=== PATIENT | female | born 2000 | race Hispanic/Latino ===

== ENCOUNTER 2021-09-23 10:43 | Emergency (ER) | payer OTHER, MEDICAID, SELFPAY ==
[2021-09-23 11:05] VITALS: BP 133/77; PULSE 69; RESP 20; TEMP 36.1; O2SAT 99; BMI 21.4
--- NOTE | 2021-09-23 11:14 | DI.CT.S_ITS ---
PROCEDURE: CT CERVICAL SPINE WO CON INDICATIONS: fall, post head and neck pain TECHNIQUE: Noncontrast 3 mm thick sections acquired from the skull base to the T4 level. Sagittal and coronal reformats were then constructed. For radiation dose reduction, the following was used: automated exposure control, adjustment of mA and/or kV according to patient size. COMPARISON: [facility], CR, XR CERVICAL SPINE 2 OR 3 VIEWS, 06/10/2021, 10:57. [facility], CT, CT HEAD/BRAIN WO CON, 09/23/2021, 11:17. FINDINGS: Image quality: Excellent. Bones: No fractures or dislocations. Visualized superior ribs are intact. Soft tissues: Prevertebral soft tissues are normal in thickness. No paravertebral hematomas. No apical pneumothoraces. IMPRESSION: Negative for fracture. Dictated by: Amado Suarez M.D. on 09/23/2021 at 10:39 Approved by: Amado Suarez M.D. on 09/23/2021 at 10:40
--- NOTE | 2021-09-23 11:17 | DI.CT.S_ITS ---
PROCEDURE: CT HEAD/BRAIN WO CON INDICATIONS: fall, post head and neck pain TECHNIQUE: Noncontrast 4.5 mm thick angled axial sections acquired from the foramen magnum to the vertex, with coronal and sagittal reformats. For radiation dose reduction, the following was used: automated exposure control, adjustment of mA and/or kV according to patient size. COMPARISON: [facility], CT, CT CERVICAL SPINE WO CON, 09/23/2021, 11:17. FINDINGS: Image quality: Mild streak artifact can be seen through the skull base. CSF spaces: Basal cisterns are patent. No extra-axial fluid collections. Ventricles are normal in size and shape. Brain: No midline shift. No intracranial masses or hemorrhage. Jain-white matter interface is normal. Skull and face: Calvarium and visualized facial bones are intact, without suspicious lesions. Sinuses: Visualized sinuses and mastoids are clear. IMPRESSION: No acute intracranial process is seen. No acute intracranial hemorrhage is seen. Dictated by: Amado Suarez M.D. on 09/23/2021 at 10:41 Approved by: Amado Suarez M.D. on 09/23/2021 at 10:41
--- NOTE | 2021-09-23 12:18 | ED.FALL ---
HPI - Fall <Fernando Gtz PA-C - Last Filed: 09/23/21 12:26> General Chief Complaint: Fall Stated Complaint: fell, neck pain, headache, advised to get CT Time Seen by Provider: 09/23/21 11:55 Source: patient Mode of arrival: Ambulatory History of Present Illness HPI Narrative: 21-year-old female with no reported past medical history presents to the ED status post a head injury sustained 2 days ago. Patient reports that she fell of a trailer when she misjudged a 3 ft stepoff. Patient had impact to the left back side of her head. Patient denies loss of consciousness. Patient does not take any blood thinners. Patient endorses paraspinal neck pain and a headache since the fall. Patient has had 2 episodes of vomiting. Patient denies fever, chills, chest pain, shortness of breath, cough, rhinorrhea, otorrhea, visual disturbances, abdominal pain, back pain, dysuria, lightheadedness, dizziness, syncope. Related Data Home Medications Medication Instructions Recorded Confirmed cholecalciferol (vitamin D3) 50 #0 07/29/17 mcg (2,000 unit) capsule (Vitamin D3) ferrous gluconate 236 mg (27 mg #0 07/29/17 iron) tablet Allergies Allergy/AdvReac Type Severity Reaction Status Date / Time No Known Drug Allergies Allergy Verified 09/23/21 11:10 Review of Systems <Fernando Gtz PA-C - Last Filed: 09/23/21 12:26> Review of Systems ROS Unobtainable: All systems reviewed & are unremarkable except as noted in HPI and below Constitutional Constitutional: Denies chills, Denies fatigue, Denies fever(s), Denies frequent falls, Reports headache(s), Denies lethargy and Denies weakness Eyes Eyes: Denies change in vision, Denies eye discharge, Denies irritation and Denies loss of vision ENT Ears, Nose, Mouth, and Throat: Denies change in voice, Denies dizziness, Reports headache(s), Reports neck pain, Denies sore throat and Denies throat swelling Cardiovascular Cardiovascular: Denies chest pain, Denies irregular heart rhythm, Denies lightheadedness, Denies palpitations, Denies dyspnea, Denies dyspnea on exertion and Denies orthopnea Respiratory Respiratory: Denies cough, Denies dyspnea, Denies dyspnea on exertion and Denies wheezing Gastrointestinal Gastrointestinal: Denies abdominal pain, Denies change in bowel habits, Denies diarrhea, Reports nausea and Reports vomiting Genitourinary Genitourinary: Denies hematuria, Denies flank pain, Denies urinary incontinence and Denies urinary urgency Musculoskeletal Musculoskeletal: Denies back pain, Denies muscle weakness, Reports neck pain, Denies numbness and Denies tingling Integumentary/Breasts Skin/Breast: Denies pruritus, Denies erythema, Denies rash and Denies wounds Neurologic Neurologic: Denies behavioral changes, Denies confusion, Denies dizziness, Denies frequent falls, Reports headache(s), Denies loss of vision, Denies numbness, Denies tingling and Denies weakness Psychiatric Psychiatric: Denies anxiety, Denies behavioral changes, Denies confusion, Denies depression, Denies homicidal ideation and Denies suicidal ideation Endocrine Endocrine: Denies fatigue, Denies flushing and Denies palpitations Hematologic/Lymphatic Hematologic/Lymphatic: Denies easy bruising Allergic/Immunologic Allergic/Immunologic: Denies urticaria, Denies throat swelling and Denies wheezing Patient History <Fernando Gtz PA-C - Last Filed: 09/23/21 12:26> Social History Smoking Status: Never smoker Smoking Status: Never smoker alcohol intake frequency: 0-2 drinks per day Substance Use Type: marijuana Exam <Fernando Gtz PA-C - Last Filed: 09/23/21 12:26> Initial Vital Signs Initial Vital Signs: Vital Signs Temperature 96.9 F L 09/23/21 11:05 Pulse Rate 69 09/23/21 11:05 Respiratory Rate 20 09/23/21 11:05 Blood Pressure 133/77 09/23/21 11:05 Pulse Oximetry 99 09/23/21 11:05 Const General: cooperative, healthy appearing and comfortable [facility] Head: normal to inspection Ears: hearing grossly normal bilaterally Nose: external nose normal Face and sinus: normal facial exam Mouth: oral mucosae normal Teeth and gingiva: dentition normal Throat: posterior oropharynx normal Eyes General: appearance normal, both eyes and all related structures Neck Neck: normal visual inspection, full ROM and no meningeal signs Chest Chest: normal inspection of the chest Resp Effort & Inspection: normal respiratory effort Auscultation: clear to auscultation bilaterally Cardio Rate: regular rate Rhythm: regular rhythm GI Other: Abdomen is soft, nontender, non distended. General: No CVA tenderness Back/Spine/Pelvis Back: normal to inspection Other: Negative midline tenderness. Some paraspinal tenderness of the neck. Full range of motion. Strength and sensation intact. Neurovascularly intact. Skin General: no rashes or lesions noted Neuro General: patient alert, patient awake and patient oriented x3 Psych Appearance: grossly normal <Zoran Moore DO - Last Filed: 09/23/21 12:31> Initial Vital Signs Initial Vital Signs: Vital Signs Temperature 96.9 F L 09/23/21 11:05 Pulse Rate 69 09/23/21 11:05 Respiratory Rate 20 09/23/21 11:05 Blood Pressure 133/77 09/23/21 11:05 Pulse Oximetry 99 09/23/21 11:05 Course <Fernando Gtz PA-C - Last Filed: 09/23/21 12:26> Orders Ordered: ED Orders 09/23/21 11:14 CT cervical spine wo con Stat 09/23/21 11:17 CT head/brain wo con Stat Vital Signs Vital signs: Vital Signs - 8 hr 09/23/21 11:05 Temperature 96.9 F L Pulse Rate 69 Respiratory Rate 20 Blood Pressure 133/77 Pulse Oximetry 99 <Zoran Moore DO - Last Filed: 09/23/21 12:31> Orders Ordered: ED Orders 09/23/21 11:14 CT cervical spine wo con Stat 09/23/21 11:17 CT head/brain wo con Stat Vital Signs Vital signs: Vital Signs - 8 hr 09/23/21 11:05 Temperature 96.9 F L Pulse Rate 69 Respiratory Rate 20 Blood Pressure 133/77 Pulse Oximetry 99 MDM - Fall <NIKKY Lima Last Filed: 09/23/21 12:26> Imaging Data CT scan - head: Radiologist's Impression: PROCEDURE:? CT HEAD/BRAIN WO CON ? INDICATIONS:? fall, post head and neck pain ? TECHNIQUE:? Noncontrast 4.5 mm thick angled axial sections acquired from the foramen magnum to the vertex, with coronal and sagittal reformats.? For radiation dose reduction, the following was used:? automated exposure control, adjustment of mA and/or kV according to patient size.? ? COMPARISON:? [facility], CT, CT CERVICAL SPINE WO CON, 09/23/2021, 11:17. ? FINDINGS:? Image quality:? Mild streak artifact can be seen through the skull base. ? CSF spaces:? Basal cisterns are patent.? No extra-axial fluid collections.? Ventricles are normal in size and shape.? ? Brain:? No midline shift.? No intracranial masses or hemorrhage.? Jian-white matter interface is normal.? ? Skull and face:? Calvarium and visualized facial bones are intact, without suspicious lesions.? ? Sinuses:? Visualized sinuses and mastoids are clear.? IMPRESSION:? ? No acute intracranial process is seen.? ? No acute intracranial hemorrhage is seen.? ? ? Dictated by: Amado Suarez M.D. on 09/23/2021 at 10:41 ? ? Approved by: Amado Suarez M.D. on 09/23/2021 at 10:41 ? CT - cervical spine: Radiologist's Impression: PROCEDURE:? CT CERVICAL SPINE WO CON ? INDICATIONS:? fall, post head and neck pain ? TECHNIQUE:? Noncontrast 3 mm thick sections acquired from the skull base to the T4 level.? Sagittal and coronal reformats were then constructed.? For radiation dose reduction, the following was used:? automated exposure control, adjustment of mA and/or kV according to patient size.? ? COMPARISON:? [facility], CR, XR CERVICAL SPINE 2 OR 3 VIEWS, 06/10/2021, 10:57.? [facility], CT, CT HEAD/BRAIN WO CON, 09/23/2021, 11:17. ? FINDINGS:? Image quality:? Excellent.? ? Bones:? No fractures or dislocations.? Visualized superior ribs are intact.? ? Soft tissues:? Prevertebral soft tissues are normal in thickness.? No paravertebral hematomas.? No apical pneumothoraces.? ? ? IMPRESSION:? Negative for fracture. ? ? ? Dictated by: Amado Suarez M.D. on 09/23/2021 at 10:39 ? ? Approved by: Amado Suarez M.D. on 09/23/2021 at 10:40 ? MDM Narrative Medical decision making narrative: 21-year-old female with no reported past medical history presents to the ED status post a head injury sustained 2 days ago. Concern for intracranial hemorrhage versus fracture/dislocation versus concussion. Will obtain CT head, CT C-spine, reassess. CT head and CT C-spine negative for acute findings. Patient counseled on concussions and post concussive syndrome. Discharged patient home with ED return precautions and PCP follow-up. Patient verbalized understanding. Discharge Plan Departure Patient Disposition: Home Clinical Impression: Concussion Instructions: DI for Concussion, DI for Postconcussion Syndrome Activity Restrictions/Additional Instructions: You were evaluated in the ED today for a head injury. Your CT head and CT cervical spine did not show any evidence of bleeding or fracture/dislocation. Your symptoms are likely due to a concussion. We advise both physical and cognitive rest until your symptoms resolve. Symptoms could include nausea, vomiting, headaches, fatigue, irritability, depression. Symptoms can last a variable length of time ranging from a few days to weeks to months. You may take Tylenol or ibuprofen for symptom relief. Please follow-up with your primary care provider for follow-up on post concussive syndrome. Return to the ED if you have worsening symptoms, numbness, tingling, weakness, repeated vomiting. Prescriptions: No Action cholecalciferol (vitamin D3) [Vitamin D3] 2,000 UNIT capsule Qty: 0 0RF ferrous gluconate 236 MG tablet Qty: 0 0RF <Zoran Moore, DO - Last Filed: 09/23/21 12:31> [facility] Dr Moore Co-Sign Statement: I was available for consultation during this patient's emergency department visit. This chart is signed by myself for administrative purposes only. I did not have direct contact with this patient during this visit. They were seen independently by the APC.
== END 2021-09-23 12:38 | disposition home or self-care (01) ==
PROVIDERS: Emergency Provider Student in an Organized Health Care Education/Training Program
DX: S06.0X0A Concussion without loss of consciousness, initial encounter (principal); M54.2 Cervicalgia; W17.89XA Other fall from one level to another, initial encounter
CPT/HCPCS: 70450; 72125; 99283; 99284

== ENCOUNTER → 2022-06-10 14:17 | Outpatient (CLI) | payer OTHER, MEDICAID, SELFPAY | PROVIDERS: Visit Provider Nurse Practitioner Family | DX: R30.0 Dysuria (principal) | CPT/HCPCS: 81002; 87086; 87147 ==

== ENCOUNTER 2023-07-17 15:22 | Outpatient (CLI) | payer OTHER, MEDICAID, SELFPAY | END 2023-07-17 16:22 | disposition home or self-care (01) | LOC: OB 07-22 15:59 | PROVIDERS: Referring Provider Obstetrics & Gynecology; Visit Provider Obstetrics & Gynecology | DX: O47.1 False labor at or after 37 completed weeks of gestation (principal); Z3A.38 38 weeks gestation of pregnancy | CPT/HCPCS: 59025; G0378; G0379 ==

== ENCOUNTER 2024-08-18 13:41 | Observation (INO) | payer OTHER, SELFPAY ==
--- NOTE | 2024-08-18 14:07 | PM.OBTRLD ---
Visit Information Visit Information Date of evaluation: 08/18/24 On-call OB Provider: Mayra Leija Reason for Evaluation: Yes pre-term labor Comments/Additional reasons for admission: 24-year-old presenting 33 weeks 0 days for 2 days cramping and 1 day of light bleeding. Yesterday evening she noticed some cramping. She was going to sleep and was able to fall asleep so she did not feel too concerned. When she woke up this morning, cramping was improved but still present. As the day went she noticed worsening and cramping and this evening noticed small flecks of bright red blood which prompted her to in for evaluation. She is receiving her care as scheduled regional. She does not recall having a anatomy ultrasound, thinks she just had a dating ultrasound. has been uncomplicated. She does note that she has a [id number] child, which would make this a short interval . On arrival to triage, labs were obtained and she was encouraged to continue with p.o. fluid hydration. This does not seem to have improved her symptoms significantly. Is still noting cramping and discharge. Vital Signs Vital Signs: BP- 129/72 HR- 93 Temp: 36.5C PFSH Social History Smoking Status: Current every day smoker Review of Systems Review of Systems Narrative: - LOF - vaginal itching + vaginal discharge + movement - OROPEZA + abd cramping - pain wtih urination Exam Narrative Exam Narrative: GEn: well appearing, NAD, non-toxic Eyes: EOMI Pulm: Breathing comfortably on room air CV: Warm and well-perfused : Normal external genitalia, patient noting lots of pain and discomfort with insertion of speculum starting at introitus present throughout insertion. Cervical os visualized, cervix visually closed. No blood at the os. No dark brown or bright red blood within vaginal vault. Copious white discharge present. MSK: no edema Evaluation Evaluation Baseline heart rate: 130 Variability: Moderate (11-25) monitor accelerations: Present Monitor Decelerations: Absent Contraction Frequency (minutes): 0 Category of Tracing: Reactive Status: Category l Cervical dilation (cm): 0 Comments: Wet mount performed: clue cells diffusely present across the slide No yeast or trich Diagnosis, Plan/Disposition Plan/Disposition Plan: 24-year-old presenting with cramping and spotting at 33 weeks 0 days. Wet mount suggestive of bacterial vaginosis. Discussed pathophysiology of this and recommend treatment with metronidazole 500 b.i.d. x7 days. Reviewed risk of yeast infection to follow, she will follow-up with her primary OB in the next week and if signs of yeast infection occur, she will follow up sooner. Reviewed risks of labor with infection. Patient understanding and amenable to treatment. FHT reactive throughout. Uterine irritability note but no contractions. UA negative. OB Disposition: home
--- NOTE | 2024-08-18 14:08 | DI.US.S_ITS ---
PROCEDURE: US OB LIMITED INDICATIONS: vaginal bleeding, cramping OUTSIDE/PRIOR DATING DATA: Last menstrual period (LMP): 11/28/2023. LMP-based estimated date of delivery (FRANCESCA): 09/03/2024. First dating scan (date and location): 02/11/2024. Estimated date of delivery (FRANCESCA) from first dating scan: 10/05/2024. TECHNIQUE: Real-time scanning was performed of the fetus, with image documentation. Endovaginal scanning: No COMPARISON: None. FINDINGS: A single living intrauterine gestation is present. Presentation: Vertex. Placenta: Placental position is anterior, without previa. Normal >2 cm. Low lying is <2 cm to the edge. Previa covers the internal os. Amniotic fluid index: 12.5 cm, normal range is 5-24 cm. Single deepest vertical pocket is 4.1 cm. heart rate: 144 beats per minute. Maternal cervical canal: 3.3 cm long. Normal lower limit is 2.5 cm. Estimated gestational age: 33 weeks and 1 day IMPRESSION: Single live intrauterine gestation with an estimated gestational age of 33 weeks and 1 day. Dictated by: Vijay Sanchez M.D. on 08/18/2024 at 16:00 Approved by: Vijay Sanchez M.D. on 08/18/2024 at 16:04
[2024-08-18 14:40] LABS: Appearance Urine UA CLEAR; Bilirubin Urine UA NEGATIVE (NEGATIVE); Color Urine UA YELLOW; Glucose Urine UA NEGATIVE (Negative); Ketones Urine UA NEGATIVE (NEGATIVE); Leukocyte Esterase Urine UA NEGATIVE (NEGATIVE); Nitrite Urine UA NEGATIVE (Negative); Occult Blood Urine UA NEGATIVE (Negative); Protein Urine UA NEGATIVE (Negative); Urobilinogen Urine UA 0.2 E.U./dL (0.2)
[2024-08-18 14:42] LABS: pH Urine UA 6.5 (4.5-8.0)
[2024-08-18 14:47] LABS: Bacteria Urine Occasional (0-1); Culture Indicated Urine Cult Not Indicated; RBC Urine 1-5/HPF (0-5/HPF); Squamous Epithelial Cell Urine 1-5 /HPF (0-5/HPF); Urine Volume 10mL (spun); WBC Urine 1-5/HPF (0-5/HPF)
== END 2024-08-18 17:26 | disposition home or self-care (01) ==
PROVIDERS: Admitting Provider Family Medicine; Referring Provider Family Medicine; Visit Provider Family Medicine
DX: O26.853 Spotting complicating pregnancy, third trimester (principal); O26.893 Other specified pregnancy related conditions, third trimester; R10.9 Unspecified abdominal pain; Z3A.33 33 weeks gestation of pregnancy
CPT/HCPCS: 59025; 59050; 76815; 81001; 87210; G0378; G0379

== ENCOUNTER → 2024-08-25 16:12 | Outpatient (CLI) | payer OTHER, SELFPAY ==
[2024-08-25 17:04] LABS: Alanine Aminotransferase 14 IU/L (<35); Albumin 3.4 g/dL (3.5-5.0); Albumin Globulin Ratio 1.3 (1.0-2.8); Alkaline Phosphatase 156 U/L (38-126); Aspartate Aminotransferase 21 IU/L (14-36); BUN Creatinine Ratio 14.5 (6-22); Bilirubin Total 0.4 mg/dL (0.2-1.3); Blood Urea Nitrogen 11 mg/dL (7-17); Carbon Dioxide 23 mmol/L (22-32); Chloride 106 mmol/L (98-107); Estimated Glomerular Filt Rate > 60 mL/min (>60); Globulin 2.7 g/dL (1.7-4.1); Glucose 80 mg/dL (70-100); HEMOLYSIS < 15 (0-50); Potassium 4.4 mmol/L (3.4-5.1); Sodium 132 mmol/L (137-145); Total Protein 6.1 g/dL (6.3-8.2)
[2024-08-27 12:36] LABS: Bile Acids 8.6 umol/L (0.0-10.0)
== END ==
PROVIDERS: Referring Provider Obstetrics & Gynecology; Visit Provider Obstetrics & Gynecology
DX: O99.713 Diseases of the skin and subcutaneous tissue complicating pregnancy, third trimester (principal); L29.9 Pruritus, unspecified
CPT/HCPCS: 36415; 80053; 82239

== ENCOUNTER 2024-08-25 17:59 | Observation (INO) | payer OTHER, SELFPAY ==
--- NOTE | 2024-08-25 18:40 | PM.OBTRLD ---
Visit Information Visit Information Date of evaluation: 08/25/24 Primary OB Provider: Debbie Morales On-call OB Provider: Debbie Morales Reason for Evaluation: Yes non-stress test Comments/Additional reasons for admission: new pruritus of hands/feet, completed labs per screedman/laborer instructions for bile acids with CMP, then called back with c/o decreased FM x24h and amenable to physician request to return to facility for NST with bedside [facility] Medical History (Updated 08/22/24 @ 11:11 by Mickie Goldberg RN) Anemia Surgical History (Updated 08/22/24 @ 11:11 by Mickie Goldberg, RN) History of tonsillectomy History of foot surgery Family History (Updated 08/22/24 @ 11:16 by Mickie Goldberg RN) Mother Hypertension Hyperlipidemia Father Hyperlipidemia Sister Asthma Grandmother Dementia Migraine Grandfather Thyroid cancer Lung cancer Bone cancer Asthma Social History marital status: unmarried,living together number of children: 1 household members: significant other, family (s/o's brother) and children lives independently: Yes caregiver/support person: Yes housing: house pets and animals: No education level: high school 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) current occupational exposures/hazards: No special camilo needs: No travel history: recent (domestic only) seatbelt use: always water heater temp set < 120 deg: Yes working smoke detector in home: Yes fire extinguisher in home: Yes carbon monox detector in home: Yes firearms in home: No do you feel safe at home: Yes Smoking Status: Former smoker (quit w/ 1st ) second hand exposure: No alcohol intake: former (very occasionally when not ) substance use type: marijuana (not when /) during the past year weight has: other (less than 6 months between pregnancies) well-balanced diet: daily or most days daily servings fruits/ve-4 caffeine: Yes (minimal) Type(s) of exercise: walking Review of Systems Review of Systems ROS: Yes All systems reviewed with the patient and are negative except as otherwise documented Exam Vital Signs (past 8 hours): maternal VSS/afebrile, reviewed in OBIX Const General: cooperative and healthy appearing Nutritional Appearance: average body habitus Orientation: alert, awake and oriented x3 Limitations: mental status not altered Resp Effort & Inspection: normal respiratory effort and able to speak in complete sentences Cardio Pulses: normal peripheral pulses GI Inspection: normal to inspection Other: gravid, rolando cephalic no rash, non-tender Other: deferred Skin General: no rashes or lesions noted (dry skin noted between fingers), No excoriation and No excoriations Neuro General: patient alert, patient awake and patient oriented x3 Extrem General: normal to inspection Psych Mental Status: mental status grossly normal Judgment: judgment good Evaluation Evaluation Baseline heart rate: 140 Variability: Moderate (11-25) monitor accelerations: Present Monitor Decelerations: Absent Category of Tracing: Reactive Status: Category l Comments: bedside US: SDP >5cm, cephalic presentation, noted calcified appearance of placenta without lacunar lakes Diagnosis, Plan/Disposition Plan/Disposition Plan: bile acids, CMP drawn today, pending and will follow strict FM precautions reviewed, pt amenable to recommendation for twice weekly NST has new OB/xfr appointment in office 08/28/24 with planned repeat NST to follow pt verbalized understanding and in agreement with plan of care OB Disposition: home
== END 2024-08-25 18:45 | disposition home or self-care (01) ==
LOC: LABOR 18:01
PROVIDERS: Admitting Provider Obstetrics & Gynecology; Referring Provider Obstetrics & Gynecology; Visit Provider Obstetrics & Gynecology
DX: O26.893 Other specified pregnancy related conditions, third trimester (principal); O99.713 Diseases of the skin and subcutaneous tissue complicating pregnancy, third trimester; L29.9 Pruritus, unspecified; Z3A.34 34 weeks gestation of pregnancy
CPT/HCPCS: 36415; 59025; 76815; 80053; 82239; G0378; G0379

== ENCOUNTER 2024-08-28 14:07 | Observation (INO) | payer OTHER, SELFPAY | END 2024-08-28 15:02 | disposition home or self-care (01) | PROVIDERS: Admitting Provider Student in an Organized Health Care Education/Training Program; PCP Family Medicine; Referring Provider Student in an Organized Health Care Education/Training Program; Visit Provider Student in an Organized Health Care Education/Training Program | DX: O26.643 Intrahepatic cholestasis of pregnancy, third trimester (principal); O36.8130 Decreased fetal movements, third trimester, not applicable or unspecified; Z3A.34 34 weeks gestation of pregnancy | CPT/HCPCS: 59025; G0378; G0379 ==

== ENCOUNTER → 2024-09-06 15:14 | Outpatient (CLI) | payer OTHER, SELFPAY ==
--- NOTE | 2024-09-06 15:16 | DI.US.S_ITS ---
PROCEDURE: US OB LIMITED INDICATIONS: check growth OUTSIDE/PRIOR DATING DATA: Working FRANCESCA 10/05/2024 provided by the patient. This is consistent with prior outside FRANCESCA based on 1st dating scan on 02/11/2024 TECHNIQUE: Real-time scanning was performed of the fetus, with image documentation and biometric measurements. COMPARISON: [facility], OB LIMITED, 08/18/2024, 14:47. FINDINGS: General: A single living intrauterine gestation is present. Presentation: Vertex. Placenta: Placental position is anterior , without previa. Amniotic fluid index: 13.9 cm, normal range is 5-24 cm. Single deepest vertical pocket is 7.2 cm. heart rate: 125 beats per minute. Maternal cervical canal: Not well seen biometrics: Biparietal diameter: 9 cm, 36 weeks and 4 days Head circumference: 32.2 cm, 36 weeks and 3 days Abdominal circumference: 32.7 cm, 36 weeks and 4 days Femur length: 6.5 cm, 33 weeks and 4 days Clinically estimated gestational age: 35 weeks and 6 days Composite gestational age from present scan: 35 weeks and 6 days Estimated weight and percentile: 2771 g, 49% Other: Not applicable. IMPRESSION: Living intrauterine gestation at 35 weeks and 4 days. EFW is at the 49th percentile. Normal ARI. Vertex presentation. Dictated by: Cipriano Madison M.D. on 09/06/2024 at 17:29 Approved by: Cipriano Madison M.D. on 09/06/2024 at 17:31
== END ==
LOC: US 15:15
PROVIDERS: PCP Family Medicine; Referring Provider Obstetrics & Gynecology; Visit Provider Obstetrics & Gynecology
DX: Z87.898 Personal history of other specified conditions (principal); Z3A.35 35 weeks gestation of pregnancy
CPT/HCPCS: 76815

== ENCOUNTER → 2024-09-12 08:32 | Outpatient (CLI) | payer OTHER, SELFPAY ==
[2024-09-13 12:56] LABS: Strep Grp B PCR NEG for Grp B Strep
== END ==
PROVIDERS: PCP Family Medicine; Visit Provider Obstetrics & Gynecology
DX: Z34.83 Encounter for supervision of other normal pregnancy, third trimester (principal); Z3A.36 36 weeks gestation of pregnancy
CPT/HCPCS: 87653

== ENCOUNTER 2024-09-13 16:10 | Outpatient (CLI) | payer OTHER, SELFPAY ==
--- NOTE | 2024-09-13 16:28 | P.TNLD_ITS ---
Visit Information Visit Information Date of evaluation: 09/13/24 Primary OB Provider: Debbie Morales On-call OB Provider: Mayra Leija Reason for Evaluation: Yes rule out labor Comments/Additional reasons for admission: 24 yo presenting at 36w6d for for pelvic pressure and cramping. She feels lie the cramping is in her bowels not in her bladder or uterus. she has also had lightening crotch. SHe is not having any fevers, urinary urgency, urinary frequency. Cramping is not regular. No LOF or VB. + movement PFSH Medical History (Updated 08/22/24 @ 11:11 by Mickie Goldberg RN) Anemia Surgical History (Updated 08/22/24 @ 11:11 by Mickie Goldberg RN) History of tonsillectomy History of foot surgery Family History (Updated 08/22/24 @ 11:16 by Mickie Goldberg RN) Mother Hypertension Hyperlipidemia Father Hyperlipidemia Sister Asthma Grandmother Dementia Migraine Grandfather Thyroid cancer Lung cancer Bone cancer Asthma Social History marital status: unmarried,living together number of children: 1 household members: significant other, family (s/o's brother) and children lives independently: Yes caregiver/support person: Yes housing: house pets and animals: No education level: high school 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) current occupational exposures/hazards: No special camilo needs: No travel history: recent (domestic only) seatbelt use: always water heater temp set < 120 deg: Yes working smoke detector in home: Yes fire extinguisher in home: Yes carbon monox detector in home: Yes firearms in home: No do you feel safe at home: Yes Smoking Status: Former smoker (quit w/ 1st ) second hand exposure: No alcohol intake: former (very occasionally when not ) substance use type: marijuana (not when /) during the past year weight has: other (less than 6 months between pregnancies) well-balanced diet: daily or most days daily servings fruits/ve-4 caffeine: Yes (minimal) Type(s) of exercise: walking Exam Narrative Exam Narrative: GEn; well appearing, NAD Eyes: EOMI Abd: gravid Pulm: breathing comfortably on RA SVE:closed/thick/high Evaluation Evaluation Baseline heart rate: 125 Variability: Moderate (11-25) monitor accelerations: Present Monitor Decelerations: Absent Contraction Frequency (minutes): 0 Status: Category l Cervical dilation (cm): 0 Cervical effacement (%): 0 station: -3 Diagnosis, Plan/Disposition Plan/Disposition Plan: 24 yo presenting at 36w6d for pelvic cramping. UA showing some bacteria, will send for culture but on further discussion pt not noting urinary sx and does not feel that her sx are related to UTI. Pelvic cramping has calmed down while being evaluated. TOCO showing no contractions. Will d/c home wtih return precatuions. OB Disposition: home
[2024-09-13 16:32] LABS: Appearance Urine UA CLEAR; Bilirubin Urine UA NEGATIVE (NEGATIVE); Color Urine UA YELLOW; Glucose Urine UA NEGATIVE (Negative); Ketones Urine UA TRACE (NEGATIVE); Leukocyte Esterase Urine UA NEGATIVE (NEGATIVE); Nitrite Urine UA NEGATIVE (Negative); Occult Blood Urine UA NEGATIVE (Negative); Protein Urine UA NEGATIVE (Negative); Specific Gravity Urine UA 1.025 (1.000-1.035); Urobilinogen Urine UA 0.2 E.U./dL (0.2)
[2024-09-13 16:33] LABS: pH Urine UA 6.5 (4.5-8.0)
[2024-09-13 16:39] LABS: RBC Urine 0-1/HPF (0-5/HPF); Urine Volume 10mL (spun)
[2024-09-13 16:40] LABS: Bacteria Urine Moderate (10-30); Culture Indicated Urine Cult Not Indicated; Mucus Urine 2+ (Negative); Squamous Epithelial Cell Urine 0-1 /HPF (0-5/HPF); WBC Urine 0-1/HPF (0-5/HPF)
== END 2024-09-13 18:10 | disposition home or self-care (01) ==
LOC: OB 09-14 14:18
PROVIDERS: Family Medicine; PCP Family Medicine; Referring Provider Obstetrics & Gynecology; Visit Provider Obstetrics & Gynecology
DX: O26.893 Other specified pregnancy related conditions, third trimester (principal); R10.2 Pelvic and perineal pain; Z3A.36 36 weeks gestation of pregnancy
CPT/HCPCS: 59025; 59050; 81001; 87086; G0378; G0379

== ENCOUNTER 2024-09-23 00:30 | Inpatient (IN) | payer OTHER, SELFPAY ==
[2024-09-23] VITALS (8 sets, daily range): BP systolic 93–120; BP diastolic 46–76; PULSE 71–93; RESP 11–16; TEMP 36–37.1; O2SAT 99–100
[2024-09-23] MEDS: LACTATED RINGERS 1,000 ML 1000 ML IV ×2 (00:50→03:55)
[2024-09-23] MEDS: ONDANSETRON 4 MG/2 ML INJ IV ×2 (00:58→06:11)
[2024-09-23 01:57] LABS: Influenza A - CEPHEID Flu A NEGATIVE (NEGATIVE); Influenza B - CEPHEID Flu B NEGATIVE (NEGATIVE); Respiratory Syncytial Virus Negative (Negative)
[2024-09-23] MEDS: ACETAMINOPHEN IV 1,000 MG/100 ML VIAL 400 MG IV ×2 (01:58→05:01)
[2024-09-23 02:03] LABS: COVID-19 CEPHEID 4-PLEX PCR Negative (Negative)
--- NOTE | 2024-09-23 03:07 | PM.OBHP.IH.1 ---
OB HPI Date/Time Date of admission: 09/23/24 Date Patient Seen: 09/23/24 Time Patient Seen: 02:50 History of Present Condition Chief complaint: nausea, vomiting, back pain, OROPEZA, chills, body ache FRANCESCA Calculator Estimated Delivery Date Method Current WG Current Estimate 10/05/24 Ultrasound #1 38w 2d Estimated Gestational Age (weeks): 38w2d : 2 Para: 1 Narrative: 24 yo presenting at 38w2d for nausea, vomiting, body aches, chills, and OROPEZA. On arrival FHT with minimal variability and tachycardia. Sx start this AM and since she has not been able to tolerate PO. complicated by late trasnfer of care and short interval (15 months from delivery to delivery- delivery on 07/17/23)) care: good care Dating criteria OB: LMP confirmed by 1st trimester US Obstetrical complications: other (short interval ) Medical complications OB: none Indications Operative indications ( section): distress Other reason(s) for admission: NRFHT Preadmission Labs Last OB Lab Results: Blood Type Pending 09/23/24 03:08 Antibody Screen Pending 09/23/24 03:08 Hct 32.6 % (36-46) L 09/23/24 03:08 Hgb 11.0 g/dL (12.0-16.0) L 09/23/24 03:08 Group B Strep (PCR) Neg for grp b strep 09/12/24 08:30 Glucose Tolerance Testin hr (outside records, values normal) -: Chlamydia screen: negative (outside records ) and Gonorrhea screen: negative (outside records ) Genetic Screens: Cell-free DNA: Normal Prior (ies) Past Pregnancies Del. Date GA/Weeks Labor Lgth Wt Sex Route Outcome Anesthesia Place Delv Breastfeed Preg Comp Name 07/18/23 36+ 7 lb 6 oz Male vaginal live - epidural [place] 6-7 months delivery Neri Hx # Term Pregnancies: 2 Hx # Pregnancies: 0 Number of Living Children: 1 Multiple births: 0 Spontaneous abortions: 0 Ectopic pregnancies: 0 Elective abortions: 0 Evaluation Evaluation Baseline heart rate: 180 Variability: Minimal (3-5) monitor accelerations: Absent Monitor Decelerations: Variable Contraction Frequency (minutes): 0 Status: Category ll (minimal variability, tachycardia, absent accelerations, variable decelerations ) Dilation (cm): 1 Effacement (%): 10 Dilation: 1-2 cm Effacement: 0-30% station: -3 Position of cervix: posterior Consistency: soft Conley score: 3 PFSH Medical History (Updated 08/22/24 @ 11:11 by Mickei Goldberg, LEO) Anemia Surgical History (Updated 08/22/24 @ 11:11 by Mickie Goldberg, RN) History of tonsillectomy History of foot surgery Family History (Updated 08/22/24 @ 11:16 by Mickie Goldberg, LEO) Mother Hypertension Hyperlipidemia Father Hyperlipidemia Sister Asthma Grandmother Dementia Migraine Grandfather Thyroid cancer Lung cancer Bone cancer Asthma Social History marital status: unmarried,living together number of children: 1 household members: significant other, family (s/o's brother) and children lives independently: Yes caregiver/support person: Yes housing: house pets and animals: No education level: high school 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[place]) current occupational exposures/hazards: No special camilo needs: No travel history: recent (domestic only) seatbelt use: always water heater temp set < 120 deg: Yes working smoke detector in home: Yes fire extinguisher in home: Yes carbon monox detector in home: Yes firearms in home: No do you feel safe at home: Yes Smoking Status: Never smoker second hand exposure: No alcohol intake: former (very occasionally when not ) substance use type: marijuana (not when /) during the past year weight has: other (less than 6 months between pregnancies) well-balanced diet: daily or most days daily servings fruits/ve-4 caffeine: Yes (minimal) Type(s) of exercise: walking Meds Home Medications and Allergies Home Medications Medication Instructions Recorded Confirmed Type valacyclovir 500 mg tablet 500 mg PO BID #30 tabs 09/04/24 09/23/24 Rx Allergies Allergy/AdvReac Type Severity Reaction Status Date / Time No Known Drug Allergies Allergy Verified 09/20/24 11:04 Review of Systems Review of Systems Narrative: + OROPEZA + nasuea (improved with zofran) + body aches + chills - fevers + movement OB Exam Vital signs Blood Pressure: 120/76 Pulse Rate: 77 Temperature: 98.7 F Narrative Exam Narrative: Gen: not acutely toxic but pt appears tired Pulm: breathing comfortably on RA Abd: gravid MSK: scant edema, symmetric SVE: //-3/soft Objective Labs Labs: Laboratory Results - last 24 hr 09/23/24 01:05 SARS-CoV-2 (PCR) Negative Influenza A (RT-PCR) Flu a negative Influenza B (RT-PCR) Flu b negative RSV (PCR) Negative Assessment and Plan Assessment and Plan Assessment and Plan narrative: 24 yo presenting at 38w2d for nausea, vomiting, body aches, chills, and OROPEZA. On arrival FHT with minimal variability and tachycardia. Sx start this AM and since she has not been able to tolerate PO. FHT non-reassuring, minimal improvement with 2 hours of monitoring after 2L IVF, 1000mg IV tylenol and Zofran. tachycardia and minimal variability persistent, variable decelerations recurrent. Pt remote from delivery. Plan to move to CS for emergent delivery due to NRFHT counseling: It was explained to the patient that a section is a surgery to deliver the baby through an incision in the abdominal wall and uterus.? All procedures can be associated with risk and unforeseen complications, which can be immediate or delayed.? Risks and complications of section include, but are not limited to:? infection of the uterus, pelvic organs, or skin; inadvertent injury to internal organs such as the bowel, bladder, or possibly even the baby; blood loss, transfusion, and/or life-threatening hemorrhage requiring hysterectomy; blood clots in the legs, pelvic organs, or lungs; adverse reaction to medications or anesthesia during surgery; development of placenta accreta spectrum in a subsequent ; and increased risk of section in a subsequent . Time-Based Coding :: [TOTAL MINUTES] spent with patient and on the chart (including review of chart, obtaining history, exam, reviewing outside data, placing orders, documenting exam and treatment plan, and counseling patient) on [DATE].
[2024-09-23 03:46] LABS: Add Manual Diff / Slide Review NO; Basophils Absolute Auto 0 /uL (0-100); Basophils Percent Auto 0.1 % (0-2); Eosinophils Absolute Auto 0 /uL (0-450); Hematocrit 32.6 % (36-46); Lymphocytes Absolute Auto 800 /uL (1100-4500); Lymphocytes Percent Auto 7.8 % (25-40); Mean Corpuscular HGB Conc 33.6 % (30-36); Mean Corpuscular Hemoglobin 30.8 PG (26-34); Mean Corpuscular Volume 91.6 fL (80-100); Monocytes Absolute Auto 500 /uL (0-900); Neutrophils Absolute Auto 9100 /uL (1500-7000); Neutrophils Percent Auto 87.1 % (50-75); Platelet Count 217 X10^3/uL (150-400); Red Blood Cell Count 3.56 X10^6/uL (4.0-5.2); Red Cell Distribution Width 14.1 % (11.6-14.8); White Blood Cell Count 10.4 X10^3/uL (4.5-11.0)
[2024-09-23] MEDS: CITRIC ACID/SODIUM CITRATE 15 ML SOLUTION 30 ML PO (03:54)
[2024-09-23 04:05] LABS: Alanine Aminotransferase 13 IU/L (<35); Albumin 3.5 g/dL (3.5-5.0); Albumin Globulin Ratio 1.3 (1.0-2.8); Alkaline Phosphatase 192 U/L (38-126); Aspartate Aminotransferase 25 IU/L (14-36); BUN Creatinine Ratio 15.1 (6-22); Bilirubin Total 0.5 mg/dL (0.2-1.3); Blood Urea Nitrogen 8 mg/dL (7-17); Calcium 8.7 mg/dL (8.4-10.2); Carbon Dioxide 20 mmol/L (22-32); Chloride 104 mmol/L (98-107); Estimated Glomerular Filt Rate > 60 mL/min (>60); Globulin 2.8 g/dL (1.7-4.1); Glucose 96 mg/dL (70-100); HEMOLYSIS < 15 (0-50); Potassium 3.8 mmol/L (3.4-5.1); Sodium 131 mmol/L (137-145); Total Protein 6.3 g/dL (6.3-8.2); Uric Acid 4.4 mg/dL (2.5-6.2)
[2024-09-23] MEDS: CEFAZOLIN 2 GM/100 ML PREMIX 100 ML IV (05:02)
[2024-09-23 05:05] LABS: Base Excess Cord Venous Blood -7.7 (-7.7-1.9); Cord Venous Blood PO2 16.3 (17-41); Cord Venous Blood pH 7.151 (7.25-7.45); HCO3 Cord Venous Blood 21.7
--- NOTE | 2024-09-23 05:31 | PM.OP.1 ---
Operative Date/Time/Diagnoses Date of procedure: 09/23/24 Time of procedure: 05:32 Pre-op diagnosis: 1) IUP at 38w2d; 2) NRFS remote from delivery, concern for placental abruption Post-op diagnosis: same Procedure & Clinicians Procedure: primary low transverse section Same procedure as scheduled: Yes Indications: 1) IUP at 38w2d 2) NRFS remote from delivery, Cat 3 tracing 3) suspected placental abruption Surgeon: Mayra Leija Riveting Machine Operator Automatic: Debbie Morales Anesthesia Type: Spinal Operative Notes Findings: male term in cephalic presentation grossly bloody amniotic fluid on rupture fragmented placenta on extraction grossly normal uterus, bilateral adnexae Closure Type: primary Specimen(s): other (placenta ) Estimated Blood Loss (mL): 800 Procedure in detail: Pt was taken to the operating room and transferred to OR table.? The spinal was placed per anesthesia.? The patient was placed in the supine position, prepped and draped in a sterile fashion.? A [place] catheter was placed. Prior to incision the level of anesthesia was rechecked and found to be adequate.? A timeout was once again performed. A pfannensteil incision was made 2cm superior to the pubic symphysis.? This incision was carried down sharply to the level of the rectus fascia.? The fascia was incised sharply with knife and the incision was extended bilaterally and superiorly using aguilar scissors. The superior border of the fascia was elevated with two Aby clamps and bluntly dissected off of the rectus muscles followed by incision of the median raphe with the aguilar scissors.? The rectus muscles were then in the midline and the peritoneum was identified.? The peritoneum was entered [sharply,bluntly] under direct visualization.? The peritoneal opening was then extended manually.? The linter drier operator?s hand was inserted in the abdomen and the uterus was found to be in a severely levo-rotated position. The bladder blade was then inserted. The vesicouterine peritoneum was identified, elevated using DeBakey forceps and incised in the midline using Metzenbaum scissors.? The incision was carried laterally and superiorly bilaterally.? A bladder flap was further developed digitally and the bladder blade was replaced.? Next, a low transverse incision was made in the uterus using the knife.? The incision was extended laterally and superiorly bilaterally bluntly.? Copious dark bloody amniotic fluid noted on entry with spontaneous fragments of placenta passing out via the hysterotomy; abruption identified and verbalized to the team. The linter drier operator?s hand was then inserted into the uterus to find an infant in the vertex OP position.? The bladder blade was removed and infant?s vertex was grasped, flexed and brought to the incision where the was delivered atraumatically using fundal pressure.? The cord was expeditiously doubly clamped and cut.?A segment of cord was preserved to obtain cord gas. The infant was then passed to waiting nursing staff for resuscitation. At this time Dr. Leija broke sterile field to participate in resuscitation; Dr. Morales assumed role as primary surgeon for remainder of the case.? The placenta was delivered via gentle traction with additional manual extraction as necessary; the placenta was then passed off the field and will be sent for permanent study. ? The uterus was exteriorized and the uterine cavity was wiped of all clots and debris.? The bladder blade was reinserted and the hysterotomy incision was repaired with #0 vicryl in a running locked fashion, followed by a second #0 vicryl in an imbricating fashion.? Tubes, ovaries and adnexae were visualized and noted to be grossly normal in appearance.? The uterus was replaced into the abdomen without difficulty and the hysterotomy was noted to be hemostatic off of tension.? The rectus fascia was closed using #1 vicryl in a running fashion.? The incision was irrigated and hemostasis was achieved using the bovie.? The subcutaneous space was reapproximated using plain gut suture in a running fashion.? The skin was closed using 4-0 monocryl followed by application of steristrips and abdominal compression dressing.? All counts were correct x2.? The pt tolerated the procedure well and without difficulty. Fundal contents were expressed and fundus noted to be firm, level noted prior to patient transfer to PACU in stable condition.? Complications: none Post-operative Condition: stable Disposition: PACU Plan for aftercare: routine postop care
[2024-09-23] MEDS: OXYCODONE IR 5 MG TABLET PO ×2 (08:18→22:09)
[2024-09-23] MEDS: METOCLOPRAMIDE 10 MG/2 ML INJ IV ×2 (11:01→15:35)
[2024-09-23] MEDS: KETOROLAC 30 MG/ML VIAL IV ×2 (12:53→18:35)
[2024-09-23 14:16] LABS: Add Manual Diff / Slide Review NO; Basophils Absolute Auto 0 /uL (0-100); Basophils Percent Auto 0.1 % (0-2); Eosinophils Absolute Auto 0 /uL (0-450); Hematocrit 32.8 % (36-46); Hemoglobin 10.9 g/dL (12.0-16.0); Lymphocytes Absolute Auto 500 /uL (1100-4500); Lymphocytes Percent Auto 4.2 % (25-40); Mean Corpuscular HGB Conc 33.1 % (30-36); Mean Corpuscular Hemoglobin 30.5 PG (26-34); Monocytes Absolute Auto 300 /uL (0-900); Monocytes Percent Auto 2.1 % (3-14); Neutrophils Absolute Auto 12100 /uL (1500-7000); Neutrophils Percent Auto 93.6 % (50-75); Platelet Count 243 X10^3/uL (150-400); Red Blood Cell Count 3.57 X10^6/uL (4.0-5.2); Red Cell Distribution Width 14.5 % (11.6-14.8); White Blood Cell Count 12.9 X10^3/uL (4.5-11.0)
[2024-09-23] MEDS: ACETAMINOPHEN 325 MG TABLET 650 MG PO (18:36)
[2024-09-24] MEDS: diphenhydrAMINE 50 MG/ML VIAL 25 MG IV ×4 (00:28→12:21)
[2024-09-24] MEDS: KETOROLAC 30 MG/ML VIAL IV (00:28)
[2024-09-24] MEDS: ACETAMINOPHEN 325 MG TABLET 650 MG PO ×2 (00:29→06:20)
[2024-09-24] MEDS: IBUPROFEN 600 MG TABLET PO ×2 (06:20→12:22)
[2024-09-24 06:24] LABS: Add Manual Diff / Slide Review NO; Basophils Absolute Auto 0 /uL (0-100); Basophils Percent Auto 0.3 % (0-2); Eosinophils Absolute Auto 0 /uL (0-450); Eosinophils Percent Auto 0.3 % (2-4); Hematocrit 30.7 % (36-46); Hemoglobin 10.5 g/dL (12.0-16.0); Lymphocytes Absolute Auto 1900 /uL (1100-4500); Mean Corpuscular HGB Conc 34.2 % (30-36); Mean Corpuscular Hemoglobin 31.4 PG (26-34); Mean Corpuscular Volume 91.9 fL (80-100); Monocytes Absolute Auto 800 /uL (0-900); Monocytes Percent Auto 7.3 % (3-14); Neutrophils Absolute Auto 8200 /uL (1500-7000); Neutrophils Percent Auto 75.1 % (50-75); Platelet Count 230 X10^3/uL (150-400); Red Blood Cell Count 3.34 X10^6/uL (4.0-5.2); Red Cell Distribution Width 14.4 % (11.6-14.8)
[2024-09-24] MEDS: DOCUSATE 100 MG CAPSULE PO (08:58)
[2024-09-24] MEDS: OXYCODONE IR 5 MG TABLET PO ×2 (08:59→12:24)
[2024-09-24] MEDS: PRENATAL VIT,CALC/IRON/FOLIC 1 TABLET 1 TAB PO (08:59)
--- NOTE | 2024-09-24 11:01 | P.DS_ITS ---
Discharge Providers Provider Date of admission: 09/23/24 00:30 Discharge Date: 09/24/24 Primary care physician: Janie Hernadez, Consults: 09/23/24 06:04 Consult to Supervisor [employer] Routine Comment: Discharge provider: Mayra Leija MD Summary Hospital Course Date Patient Seen: 09/24/24 Time Patient Seen: 11:01 Hospital Course: 24 yo who presenting to [facility] nasuea, vomiting, abd pain, body aches and chills. On arrival FHT showed tachycardia to 180, minimal variability and recurrent variable decelerations. She was treated with 2L IVF, antiemetics, and IV tylenol. FHT were persistently non-reassuring. Decision was made to move to CS due to non-reassuring FHT. Intraoperatively, nadeem placental abruption was noted. Infant required significant resuscitation and ended up getting transferred to higher level of care for further management and cooling. APGARS were 4, 1, 5 and 7 at one, five, ten and fifteen min. The remainder of the procedure was uncomplicated. she had some nausea thought to be secondary to anesthesia. Pain is well controlled. She is ambulating without difficulty. She is voiding and passing gas. She is pumping for . She will f/up in 1 week for wound check. Bleeding was well controlled Peripartum Data Infant Delivery Method: Section complications: none Status at Discharge Cognitive/behavioral status at discharge: oriented Functional status at discharge: independent ambulation Time Spent with Patient Time attestation: Total time spent providing and/or coordinating discharge services: Time spent: Greater than 30 minutes Objective Labs 09/24/24 06:15 09/23/24 03:08 Labs: Laboratory Results - last 24 hr 09/23/24 09/24/24 14:07 06:15 WBC 12.9 H 11.0 RBC 3.57 L 3.34 L Hgb 10.9 L 10.5 L Hct 32.8 L 30.7 L MCV 92.0 91.9 MCH 30.5 31.4 MCHC 33.1 34.2 RDW 14.5 14.4 Plt Count 243 230 Neut % (Auto) 93.6 H 75.1 H Lymph % (Auto) 4.2 L 17.0 L Wright % (Auto) 2.1 L 7.3 Eos % (Auto) 0.0 L 0.3 L Baso % (Auto) 0.1 0.3 Neut # (Auto) 43543 H 8200 H Lymph # (Auto) 500 L 1900 Wright # (Auto) 300 800 Eos # (Auto) 0 0 Baso # (Auto) 0 0 Exam Vital Signs (past 8 hours): Oxygen Delivery Method Room Air Narrative Exam Narrative: Gen: well appearing Pulm: breathing comfortably on RA Abd: appropriate postop tenderness, dressing clean and dry MSK: scant edema, symmetric Discharge Plan Discharge Plan Patient Disposition: Home Discharge orders & Medications Prescriptions: New oxycodone 5 mg Tablet 5 mg PO Q4H PRN (Reason: Pain, Moderate (4-6)) Qty: 15 0RF gabapentin 300 mg capsule 300 mg PO BID Qty: 14 0RF Rx Instructions: for incisional pain PRN polyethylene glycol 3350 [GentleLax] 17 gram/dose powder 17 g PO DAILY Qty: 119 0RF hydroxyzine pamoate 25 mg capsule 50 mg PO TID Qty: 30 0RF Continued valacyclovir 500 mg tablet 500 mg PO BID Qty: 30 0RF Follow up/Referrals: Janie Hernadez DO [Primary Care Provider] - Visit Report/Discharge Packet Stand Alone Forms: Patient Portal/API, Stroke Signs & Symptoms Discharge Data Primary Care Provider: Janie Hernadez
[2024-09-24 11:28] VITALS: BP 96/66; PULSE 92; RESP 17; TEMP 37.2
[2024-09-24 12:22] VITALS: TEMP 37.2
== END 2024-09-24 14:30 | disposition home or self-care (01) | DRG 540 ==
PROVIDERS: Obstetrics & Gynecology; Admitting Provider Family Medicine; PCP Family Medicine; Referring Provider Family Medicine; Visit Provider Family Medicine
PROC: (CPT 59514; principal; 2024-09-23 07:00)
DX: O76 Abnormality in fetal heart rate and rhythm complicating labor and delivery (principal); O45.93 Premature separation of placenta, unspecified, third trimester; Z3A.38 38 weeks gestation of pregnancy; Z37.0 Single live birth; Z11.52 Encounter for screening for COVID-19
CPT/HCPCS: 0241U; 36415; 59050; 59514; 80053; 82803; 84550; 85025; 86850; 86900; 86901; 96360; G0379; J0131; J0690; J1100; J1200; J1885; J2274; J2405; J2765

== ENCOUNTER 2024-10-02 13:54 | Emergency (ER) | payer OTHER, SELFPAY ==
[2024-10-02 14:26] VITALS: BP 137/75; PULSE 78; RESP 18; TEMP 36.7; O2SAT 97; BMI 27.4
== END 2024-10-02 20:15 | disposition left against medical advice (07) ==
PROVIDERS: Emergency Provider Emergency Medicine; PCP Family Medicine
DX: R10.9 Unspecified abdominal pain (principal)
CPT/HCPCS: 99281

== ENCOUNTER → 2025-01-08 14:02 | Outpatient (CLI) | payer OTHER, SELFPAY ==
--- NOTE | 2025-01-08 14:03 | DI.US.S_ITS ---
PROCEDURE: US PERIPH VENOUS UP EXTREM LT INDICATIONS: L forearm venous nodularity/hematoma, 3mos s/p IV TECHNIQUE: Real-time imaging, as well as color and pulse Doppler interrogation, was performed of the upper extremity deep veins from the inferior neck to the antecubital fossa. COMPARISON: None. FINDINGS: The internal jugular vein, visualized portions of the subclavian vein, axillary, and brachial veins are free of intraluminal thrombus. Where physically possible, the veins are normally compressible. Color and pulse Doppler demonstrate normal intraluminal flow, with expected phasicity and pulsatility. Thrombosed superficial vein, likely cephalic the left wrist extending to the mid forearm. IMPRESSION: No findings of upper extremity deep venous thrombosis can be seen. Superficial venous thrombosis within the mid to distal forearm. Dictated by: Lowell Solorzano M.D. on 01/08/2025 at 14:56 Approved by: Lowell Solorzano M.D. on 01/08/2025 at 14:58
== END ==
LOC: US 14:03
PROVIDERS: PCP Family Medicine; Referring Provider Obstetrics & Gynecology; Visit Provider Obstetrics & Gynecology
DX: T81.72XA Complication of vein following a procedure, not elsewhere classified, initial encounter (principal); I82.612 Acute embolism and thrombosis of superficial veins of left upper extremity
CPT/HCPCS: 93971